=== PATIENT | female | born 2000 | race Two or more races ===

== ENCOUNTER 2019-01-25 16:49 | Emergency (ER) | payer OTHER ==
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
[2019-01-25 19:20] VITALS: BP 128/86
== END 2019-01-25 19:18 | disposition home or self-care (01) ==
LOC: ED 16:49
DX: S49.92XA Unspecified injury of left shoulder and upper arm, initial encounter (principal); M25.522 Pain in left elbow; W05.2XXA Fall from non-moving motorized mobility scooter, initial encounter; Y92.9 Unspecified place or not applicable
CPT/HCPCS: 99282